=== PATIENT | female | born 1985 | race Caucasian/White ===

== ENCOUNTER 2023-08-10 06:45 | Inpatient (IN) | payer OTHER, SELFPAY ==
[2023-08-10] MEDS: LR 1000 IV ×2 (07:10→08:14)
[2023-08-10 07:32] VITALS: BP 121/76
[2023-08-10 07:45] LABS: Hematocrit 35.1 % (37.0-47.0); Hemoglobin 12.4 g/dL (12.0-16.0); Mean Corp Hgb Conc. 35.3 g/dL (33.0-37.0); Mean Corpuscular Hgb 30.9 pg (27.0-31.0); Mean Corpuscular Volume 87.5 fL (81.0-99.0); Mean Platelet Volume 10.7 fL (7.4-10.4); Platelet Count 182 10^3/uL (130-400); Red Blood Cell Count 4.01 10^6/uL (4.20-5.40); Red Cell Dist. Width 13.6 % (11.5-14.5); White Blood Cell Count 8.9 10^3/uL (4.8-10.8)
[2023-08-10] MEDS: ANCEF 10 IV (08:17)
[2023-08-10] MEDS: TYLENOL 1000 MG PO (08:43)
[2023-08-10] MEDS: BICITRA 30 ML PO (08:43)
[2023-08-10] MEDS: PITOCIN 30 UNITS/NSS 500 ML IV ×2 (09:41→15:26)
[2023-08-10] MEDS: TORADOL 15 MG IV ×2 (16:00→22:01)
[2023-08-10] MEDS: ZOLOFT 50 MG PO (17:33)
[2023-08-11] MEDS: TORADOL 15 MG IV ×2 (04:11→10:14)
[2023-08-11 04:56] LABS: Hematocrit 32.7 % (37.0-47.0); Hemoglobin 11.1 g/dL (12.0-16.0); Mean Corp Hgb Conc. 33.9 g/dL (33.0-37.0); Mean Corpuscular Hgb 30.8 pg (27.0-31.0); Mean Corpuscular Volume 90.8 fL (81.0-99.0); Platelet Count 165 10^3/uL (130-400); Red Cell Dist. Width 13.7 % (11.5-14.5); White Blood Cell Count 10.4 10^3/uL (4.8-10.8)
[2023-08-11] MEDS: SENOKOT-S 1 TABLET PO (10:13)
[2023-08-11] MEDS: MYLICON 80 MG PO (13:03)
[2023-08-11] MEDS: ZOLOFT 50 MG PO (13:03)
[2023-08-11] MEDS: MOTRIN 600 MG PO ×2 (16:36→22:42)
[2023-08-11] MEDS: TYLENOL 650 MG PO (19:40)
[2023-08-12] MEDS: MOTRIN 600 MG PO ×2 (05:00→11:08)
[2023-08-12] MEDS: TYLENOL 650 MG PO ×2 (05:01→11:08)
--- NOTE | 2023-08-12 07:07 | W.DS.TRANS ---
DC Summary - Gift Officer
-
Discharge Instructions:
Instructions:
Stand-Alone Forms:
Changes to Home Medications: No
Discharge Medications:
DC Medications w/original date entered in [facility]
Vitamins 1 tab PO DAILY Supplement 09/20/17
sertraline 50 mg tablet 1 tab PO DAILY Depression/Anxiety 09/20/17
clonazepam 0.5 mg tablet 0.5 mg PO PRN PRN anxiety 08/10/23
Home Medication Changes
Pending Results: No
[2023-08-12] MEDS: SENOKOT-S 1 TABLET PO (07:43)
[2023-08-12] MEDS: ZOLOFT 50 MG PO (07:43)
[2023-08-14 16:36] LABS: Syphilis/T. pallidum Ab Reflex Negative (Negative)
== END 2023-08-12 11:13 | disposition home or self-care (01) | DRG 788 ==
LOC: LDRP 06:45
PROVIDERS: ADMITTING PHYSICIAN Obstetrics & Gynecology
PROC: 10D00Z1 Extraction of Products of Conception, Low, Open Approach (ICD-10-PCS; 2023-08-10)
DX: O34.211 Maternal care for low transverse scar from previous cesarean delivery (principal); N85.8 Other specified noninflammatory disorders of uterus; Z3A.39 39 weeks gestation of pregnancy; Z37.0 Single live birth; O69.81X0 Labor and delivery complicated by cord around neck, without compression, not applicable or unspecified; O99.344 Other mental disorders complicating childbirth; F41.9 Anxiety disorder, unspecified; F32.A Depression, unspecified
CPT/HCPCS: 85027; 86780; 86850; 86900; 86901

== ENCOUNTER 2023-08-16 18:12 | Emergency (ER) | payer OTHER, SELFPAY ==
[2023-08-16 18:15] VITALS: BP 134/98
[2023-08-16 18:27] VITALS: BP 146/87
[2023-08-16 18:43] LABS: % Basophils 0.2 % (0-2); % Eosinophils 1.5 % (0-6); % Immature Granulocytes 0.3 % (0-0.5); % Lymphocytes 17.5 % (20.5-51.1); % Monocytes 7.6 % (1.7-9.3); % Neutrophils 72.9 % (42.2-75.2); Absolute Eosinophils 0.1 10^3/uL (0-0.7); Absolute Lymphocytes 1.7 10^3/uL (1.2-3.4); Absolute Monocytes 0.7 10^3/uL (0.1-0.6); Absolute Neutrophils 6.9 10^3/uL (1.4-6.5); Hematocrit 35.2 % (37.0-47.0); Mean Corp Hgb Conc. 34.1 g/dL (33.0-37.0); Mean Corpuscular Hgb 30.4 pg (27.0-31.0); Mean Corpuscular Volume 89.1 fL (81.0-99.0); Mean Platelet Volume 9.9 fL (7.4-10.4); Nucleated Red Blood Cells % 0 %; Platelet Count 250 10^3/uL (130-400); Red Blood Cell Count 3.95 10^6/uL (4.20-5.40); Red Cell Dist. Width 12.8 % (11.5-14.5); White Blood Cell Count 9.5 10^3/uL (4.8-10.8)
[2023-08-16 18:51] VITALS: BMI 27.5
[2023-08-16 18:53] LABS: Lactic Acid 0.9 mmol/L (0.7-2.0)
[2023-08-16 18:56] LABS: ALT (SGPT) 51 U/L (0-35); AST (SGOT) 32 U/L (14-36); Albumin 3.8 g/dl (3.5-5.0); Alkaline Phosphatase 122 U/L (38-126); Blood Urea Nitrogen 15 mg/dl (7-17); Calcium 9.3 mg/dl (8.4-10.2); Carbon Dioxide 24 mmol/L (22-30); Chloride 101 mmol/L (98-107); Estimated Creatinine Clearance > 125 ml/min; Glucose 104 mg/dl (70-99); Sodium 132 mmol/L (135-145); Total Bilirubin 0.4 mg/dl (0.2-1.3); Total Protein 6.3 g/dl (6.3-8.2); eGFR > 60.00
[2023-08-16 19:02] VITALS: BP 144/82
--- NOTE | 2023-08-16 19:42 | ED.GENMED ---
History of Present Illness
General
Chief Complaint: Post Operative Problem(s)
Source: patient and family
Time Seen by Provider: 08/16/23 18:22
Travel History
Have you had any contact with someone who has COVID-19?: No
Do you have any symptoms of coronavirus? Fever > 100 degrees, chills, cough, shortness of breath, sore throat, loss of taste or smell, muscle aches, or headache?: No
History of Present Illness
History of Present Illness:
37-year-old female who presents with redness and concern of her wound. Patient had a 5 days ago. She had history of skin infection and wound infection in her previous . The patient denies fevers but states she has been taking
ibuprofen for discomfort. Patient reports a little bit of redness but mostly complains of itchiness and was worried that the right side the wound was opening. The patient denies any significant pain. She states that his not looking anything like
her previous infection
Past History
Past History
ED Past Medical History: None
ED Past Surgical History:
Phy Exam
Physical Exam
Physical Exam:
CONSTITUTIONAL Vital signs reviewed, Patient alert and oriented to person, place and time. Well-appearing
HEAD atraumatic, normocephalic.
EYES eyelids normal to inspection, Extraocular muscles intact, Conjunctiva normal, Sclera normal.
NECK normal range of motion, Trachea midline, no jugular venous distention.
RESP no respiratory distress
BACK No obvious deformities
Abdomen low transverse postoperative wound noted with Dermabond mesh in place. There is a very focal area of redness at the right edge of the mesh. There is no wound dehiscence. There is no drainage. There is no significant surrounding
cellulitis. There is no increased warmth.
UPPER EXTREMITY Gross Range of motion normal, gross motor strength normal
LOWER EXTREMITY Gross range of motion normal, Gross motor strength normal
NEURO Speech normal, No focal motor deficits include, Vanderbilt coma scale 15, Memory normal, Cranial Nerves intact to screening exam.
SKIN Skin warm, dry
PSYCHIATRIC Patient oriented to person place and time, Normal affect.
Course
Orders/Labs/Results
Orders:
Orders
08/16/23 18:35
Complete Blood Count/With Diff Urgent
Comprehensive Metabolic Panel Urgent
Lactic Acid Urgent
Blood Culture Urgent
AVA Source: Blood/Venous
Specimen Description:
08/16/23 19:14
Blood Culture Urgent
AVA Source: Blood/Venous
Specimen Description:
08/16/23 20:19
Cephalexin Monohydrate [Keflex] 500 mg PO NOW STA
Abnormal Lab Results
08/16/23
18:35
RBC 3.95 L 10^6/uL
(4.20-5.40)
Hct 35.2 L %
(37.0-47.0)
Absolute Neuts (auto) 6.9 H 10^3/uL
(1.4-6.5)
Absolute Monos (auto) 0.7 H 10^3/uL
(0.1-0.6)
Lymphocytes % 17.5 L %
(20.5-51.1)
Sodium 132 L mmol/L
(135-145)
Glucose 104 H mg/dl
(70-99)
ALT 51 H U/L
(0-35)
08/16/23 18:35
08/16/23 18:35
Vital Signs
Initial and Last Documented VS:
Initial Vital Signs
Temp Pulse Resp BP Pulse Ox
98.9 F 81 18 134/98 96
08/16/23 18:15 08/16/23 18:15 08/16/23 18:15 08/16/23 18:15 08/16/23 18:15
Last Documented Vital Signs
Temp Pulse Resp BP Pulse Ox
98.9 F 81 18 144/82 98
03/21/24 18:15 08/16/23 18:15 08/16/23 18:15 08/16/23 19:02 08/16/23 19:02
MDM/Problems Addressed
MDM/Problems Addressed:
Postoperative wound, dermatitis, rule out infection
*Pulse Oximetry
Patient hypoxic: no
*Critical Care Note
Total Time (30-74mins, 75-104mins- exclusive of procedures): Not Applicable
Data Reviewed
Review of Other/Old Records Reveals: Operative Reports
Source: patient and spouse
Further Testing Considered But Not Given:
Consider blood cultures but does not appear bacteremic
Patient Management
Discussion with other providers: Crisis Therapist (Case discussed with Dr. Chavira. Will cover with antibiotics. They will follow and reexamine her tomorrow. Okay for outpatient management. I do more suspect dermatitis related to her Dermabond and
mesh that I do infection but in light of her history, cover with)
ED Attending Note
-
Portions of this chart may have been created with voice recognition software.� Occasional wrong word or��sound alike� substitutions may have occurred due to the inherent limitations of voice recognition software.
Discharge Plan
Departure
Patient Disposition: Home (Routine Discharge)
Date of Disposition: 08/16/23
Time of Disposition: 20:21
Patient with high blood pressure during this ER visit?: No
Discharge Problem:
Dermatitis
Instructions: Wound Care (DC)
Prescriptions:
New
cephalexin 500 mg capsule
500 mg PO TID Qty: 21 0RF
No Action
sertraline 50 MG tablet
1 tab PO DAILY
Vitamins
1 tab PO DAILY
clonazepam 0.5 mg Tablet
0.5 mg PO PRN PRN (Reason: anxiety)
acetaminophen 325 mg Tablet
650 mg PO Q4HPRN PRN (Reason: mild pain) Qty: 0 0RF
sennosides-docusate sodium [Stool Softener-Stimulant Laxat] 8.6-50 mg Tablet
1 tab PO DAILYPRN PRN (Reason: constipation) Qty: 0 0RF
ibuprofen 600 mg Tablet
600 mg PO Q6HPRN PRN (Reason: cramps) Qty: 45 0RF
simethicone 80 mg Tablet,Chewable
80 mg PO TIDPRN PRN (Reason: flatulence) Qty: 0 0RF
Referrals:
Bruno Amaya MD [Family Provider] -
Activity Restrictions/Additional Instructions:
Dermatitis versus cellulitis. Please see your validation consultant tomorrow for follow-up and reevaluation. Return immediately for increasing redness, fevers, pain, drainage or any other concerns.
Interventions
Interventions:
*Risk Screen - Suicide Last Done: 08/16/23 18:15
*General Assessment Last Done: 08/16/23 18:15
*Neglect/Abuse Screening Last Done: 08/16/23 18:15
ED- Fall Risk Assessment Last Done: 08/16/23 18:41
*ED COVID-19 Vaccine History Last Done: 08/16/23 18:15
ED-Skin Assessment Last Done: 08/16/23 18:41
[2023-08-16] MEDS: KEFLEX 500 MG PO (20:33)
[2023-08-16 20:38] VITALS: BP 139/93
== END 2023-08-16 20:44 | disposition home or self-care (01) ==
LOC: EMR 18:12
PROVIDERS: Emergency Medicine; EMERGENCY PHYSICIAN Emergency Medicine; FAMILY PHYSICIAN Family Medicine
DX: O90.89 Other complications of the puerperium, not elsewhere classified (principal); L30.9 Dermatitis, unspecified; Z98.890 Other specified postprocedural states; Z88.2 Allergy status to sulfonamides
CPT/HCPCS: 99283; 80053; 83605; 85025; 87040